=== PATIENT | male | born 1955 | race Caucasian/White ===

== ENCOUNTER 2021-06-20 11:07 | Emergency (ER) | payer MEDICARE, BC ==
[~2021-06-20 11:07] MED LIST: NO HOME MEDICATIONS; NORCO 325 MG-7.1 TAB PO; ZITHROMAX 250M250 MG PO
[2021-06-20] MEDS ORDERED: ADVIL200 MG PO (20:22)
== END 2021-06-20 11:27 | disposition left against medical advice (07) ==
LOC: COL.ER 11:07
DX: R69 Illness, unspecified (principal)

== ENCOUNTER 2021-06-20 16:23 | Observation (INO) | payer MEDICARE, BC ==
[~2021-06-20] VITALS: Ht 185.4 cm; Wt 82.8 kg
[2021-06-20 17:09] LABS: BASO # 0.1 K/mm3 (0.0-0.2); BASO % 0.5 % (0.0-2.0); EOS % 0.1 % (0-4.0); GRAN # 8.3 K/mm3 (1.4-6.5); HEMATOCRIT 49.7 % (42.0-52.0); HEMOGLOBIN 17.5 g/dl (13.5-18.0); LYMPH # 0.6 K/mm3 (1.2-3.4); LYMPH % 6.6 % (20.0-51.0); MEAN CELL VOLUME 97 fl (80.0-100.0); MEAN CORPUSCULAR HEMOGLOBIN 34 pg (27.0-31.0); MEAN CORPUSCULAR HGB CONC 35 g/dl (33.0-37.0); MEAN PLATELET VOLUME 9.2 fl (7.4-10.4); MONO # 0.6 K/mm3 (0.1-0.6); MONO % 6.5 % (1.7-9.3); PLATELET COUNT 193 K/mm3 (130-400); RED BLOOD COUNT 5.13 M/mm3 (4.20-5.60); REDCELL DISTRIBUTION WIDTH-CV 12.7 % (11.5-14.5)
[2021-06-20 17:28] LABS: BILIRUBIN,TOTAL 0.7 mg/dL (0.2-1.2); CALCIUM 9.7 mg/dL (8.4-10.2); CREATININE, serum 1.13 mg/dL (0.72-1.25); POTASSIUM 4.6 mmol/L (3.5-4.5); TOTAL PROTEIN 7.6 gm/dL (6.2-8.1)
[2021-06-20 17:33] LABS: TROPONIN-I 0.011 ng/mL (0.00-0.033)
[2021-06-20 20:17] VITALS: BP 164/75; PULSE 71; TEMP 98.8
[2021-06-20] MEDS ORDERED: ADVIL200 MG PO (20:22)
--- NOTE | 2021-06-20 22:14 | NUR ---
PT ARRIVES TO ROOM @ 2009 FROM ED VIA ER CART. PT AMBULATES SHORT DISTANCE TO BED, BECOMES SOB ET BEGINS HAVING PAIN. AFTER LAYING IN BED WITH HOB ELEVATED FOR 5 MINUTES, PT STATES THAT PAIN ET SOB DIMINSIHES WITH REST. LEFT CHEST TUBE CONNECTED TO CONTINOUS WALL SUCTIONING @ 20. TUBING IS FREE OF KINKS ET DRAINING FREELY. CAN OCCASIONALLY VISULAIZE SMALL AMOUNT OF SANGUINEOUS DRAINAGE IN TUBING. DRESSING TO LEFT SIDE CDI. O2 SATS REMAIN @ 93-96% ON RA. DR. MARTINS CALLED ET RECEIVED NEW ORDERS. PT EDUCATED ON FALL PRECAUTIONS, CALL LIGHT, VISITOR RESTRICTIONS ET PRODUCTION UTILITY WORKER, IS AGREEABLE. REFUSES SCDs @ THIS TIME, EDUCATED ON REASONING OF USE, CONTINUES TO REFUSE. PT GIVEN SANDWICH BOX TO EAT, STATES THAT HE HASN'T EATEN SINCE NOON. MED REC ET ALLERGIES VERIFIED. BED ALARM ON, CALL LIGHT WITHIN REACH.
[2021-06-20 23:31] VITALS: BP 159/71; PULSE 79; TEMP 98.6
--- NOTE | 2021-06-21 03:33 | NUR ---
PT APPEARS TO BE SLEEPING. O2 ON @ 2L NC. CHEST TUBE MAINTAINED ET CONNECTED TO WALL SUCTION @ 20. WATER CHAMBER BUBBLES VERY SLIGHTLY. SCANT AMOUNT OF SANGUINEOUS DRAINAGE SEEN IN TUBING. BED ALARM ON, CALL LIGHT WITHIN REACH.
[2021-06-21 04:00] VITALS: BP 164/90; PULSE 72; TEMP 98.1
--- NOTE | 2021-06-21 05:02 | NUR ---
PT'S VS TAKEN. PT REFUSES TO WEAR OXYGEN @ THIS TIME, STATES THAT IT BOTHERS HIM. O2 SATS 95% ON RA. CHEST TUBE MAINTAINED, TUBING FREE OF KINKS, REMAINS CONNECTED TO WALL SUCTION. PT HAS NOT URINATED ALL NIGHT, STATES THAT THIS IS NORMAL FOR HIM. ENCOURAGED PT TO DRINK WATER, WATER PITCHER REMAINS MOSTLY FULL FROM BEING FILLED THE NIGHT BEFORE. PT STATES THAT HE DOES NOT LIKE WATER MUCH BUT WOULD PREFER PEPSI. PEPSI GIVEN TO PT BUT ALSO ENCOURAGED TO DRINK WATER WELL. PT STATES THAT HE HAS BACK PAIN FROM THE BED, IBROPROFEN ADMINISTERED. DENIES OTHER NEEDS @ THIS TIME. RESPIRATIONS UNLABORED. CALL LIGHT WITHIN REACH.
[2021-06-21 07:46] VITALS: BP 156/78; PULSE 76; TEMP 98.2
--- NOTE | 2021-06-21 07:54 | NUR ---
pt. resting in bed with call light within reach, c/o SOB with movement in bed, pain assessed as dull/soreness. pt compliant with cares and makes needs known.
--- NOTE | 2021-06-21 08:40 | NUR ---
Patient in bed resting. Alert and oriented x 3. Assessment complete. Chest tube to left chest with occlusive dressing, CDI. Minimal serosanginous drainage present. Corrected chest tube at this time. Patient denies needs at this time.
[2021-06-21 12:48] VITALS: BP 164/76; PULSE 76
--- NOTE | 2021-06-21 15:11 | NUR ---
SW met with the patient to discuss discharge plan. The patient lives alone in [place]. He reports independence with ADLs and does not have any DME. The patient's PCP is Dr. Thomas Tracy and he receives his medications from [facility]. He reports no difficulties obtaining his meds. The patient does not have a DPOA-HC, but he was interested in obtaining a form. SW provided. The patient states that he is not and that he has three children: Cornelio (ph#[phone]), [place], and Flako Melgar. The patient plans to return home upon discharge. No additional needs at this time. *Discharge plan: home*
[2021-06-21 16:12] VITALS: BP 136/66; PULSE 82; TEMP 97.8
--- NOTE | 2021-06-21 16:25 | NUR ---
Discharge education provided to patient. Educated on activity restrictions and when to call provider. Patient educated on follow up appointment. All questions answered. INT to LAC discontinued, catheter tip intact. Patient ambulated out with surgical staff.
== END 2021-06-21 16:15 | disposition home or self-care (01) ==
LOC: COL.ER 16:23 → SURG 18:20
PROVIDERS: Emergency Medicine; ADMIT Surgery
DX: J93.9 Pneumothorax, unspecified (principal); I10 Essential (primary) hypertension; G89.29 Other chronic pain; M25.512 Pain in left shoulder; F17.210 Nicotine dependence, cigarettes, uncomplicated; Z20.822 Contact with and (suspected) exposure to COVID-19
CPT/HCPCS: G0378; J3010

== ENCOUNTER 2021-06-24 07:24 | Emergency (ER) | payer MEDICARE, BC ==
[~2021-06-24] VITALS: Ht 185.4 cm; Wt 86.4 kg
[~2021-06-24 07:24] MED LIST changes: +ADVIL200 MG PO
[2021-06-24 07:31] VITALS: TEMP 98.2
[2021-06-24 08:39] LABS: HEMATOCRIT 49.7 % (42.0-52.0); MEAN CELL VOLUME 98 fl (80.0-100.0); MEAN CORPUSCULAR HEMOGLOBIN 34 pg (27.0-31.0); MEAN CORPUSCULAR HGB CONC 34 g/dl (33.0-37.0); MEAN PLATELET VOLUME 9.1 fl (7.4-10.4); PLATELET COUNT 203 K/mm3 (130-400); RED BLOOD COUNT 5.08 M/mm3 (4.20-5.60); REDCELL DISTRIBUTION WIDTH-CV 12.8 % (11.5-14.5)
[2021-06-24 08:53] LABS: ALBUMIN 3.7 gm/dL (3.4-4.8); BILIRUBIN,TOTAL 1.2 mg/dL (0.2-1.2); C-REACTIVE PROTEIN 0.3 mg/dL (0.00-0.50); CALCIUM 9.7 mg/dL (8.4-10.2); CREATININE, serum 0.97 mg/dL (0.72-1.25); POTASSIUM 3.8 mmol/L (3.5-4.5); TOTAL PROTEIN 6.9 gm/dL (6.2-8.1)
[2021-06-24 09:19] LABS: BAND 7 % (0-10); EOSINOPHIL 1 % (0-4); LYMPHOCYTE 8 % (20.0-51.0); NEUTROPHILS 73 % (42.0-75.2); PLATELET ESTIMATE NORMAL (NORMAL)
[2021-06-24] MEDS ORDERED: DOXYCYCLINE 10100 MG PO (10:52)
[2021-06-24 11:06] VITALS: BP 156/85; PULSE 71
== END 2021-06-24 11:06 | disposition home or self-care (01) ==
LOC: COL.ER 07:24
PROVIDERS: Emergency Medicine
DX: J18.1 Lobar pneumonia, unspecified organism (principal); D72.829 Elevated white blood cell count, unspecified; M25.512 Pain in left shoulder; G89.29 Other chronic pain; I10 Essential (primary) hypertension; F17.210 Nicotine dependence, cigarettes, uncomplicated; Z96.89 Presence of other specified functional implants; Z79.1 Long term (current) use of non-steroidal anti-inflammatories (NSAID)
CPT/HCPCS: J0696; J7030